=== PATIENT | female | born 1940 | race Caucasian/White ===

== ENCOUNTER → 2023-04-21 10:15 | Outpatient (BNV) | payer MEDICARE, SELFPAY | PROVIDERS: PCP Internal Medicine; Visit Provider Radiology Diagnostic Radiology | DX: Z12.31 Encounter for screening mammogram for malignant neoplasm of breast (principal) | CPT/HCPCS: 77063; 77067 ==

== ENCOUNTER 2023-04-21 10:30 | Outpatient (REF) | payer MEDICARE, SELFPAY ==
--- NOTE | ~2023-04-21 | MM_ITS ---
EXAMINATION: MM SCREENING DIGITAL BREAST TOMOSYNTHESIS, BILATERAL CLINICAL INFORMATION: Screening. Asymptomatic. COMPARISON: Mammography: This study is compared with prior exams dating back to 2009. TECHNIQUE: Digital breast tomosynthesis is performed in both the craniocaudal and mediolateral oblique views along with computer-aided detection (CAD). Synthesized 2D images are generated from the tomosynthesis. FINDINGS: There are scattered areas of fibroglandular density (ACR BI-RADS breast composition Category b). There are no significant masses, abnormal calcifications, or other abnormalities. MM/MM tomosynthesis screening BI IMPRESSION: No mammographic evidence of malignancy. ASSESSMENT: BI-RADS BI-RADS 1 - Negative RECOMMENDATION: Routine annual mammography screening. 1 year F/U This examination should not preclude the clinical evaluation of a suspicious palpable abnormality. This patient's information was entered into a reminder system with a target due date for their next mammogram.
== END 2023-04-21 10:31 | disposition home or self-care (01) ==
LOC: HO.MAMMO 10:30
PROVIDERS: PCP Internal Medicine; Visit Provider Internal Medicine
DX: Z12.31 Encounter for screening mammogram for malignant neoplasm of breast (principal)
CPT/HCPCS: 77063; 77067

== ENCOUNTER 2023-05-25 14:31 | Outpatient (REF) | payer MEDICARE, SELFPAY ==
--- NOTE | ~2023-05-25 | XR_ITS ---
EXAMINATION: XR HIP, RIGHT CLINICAL INFORMATION: Right hip pain with question DJD COMPARISON: None available. TECHNIQUE: Three views of the right hip. FINDINGS: Mild degenerative changes are seen in the right hip joint with some mild sclerosis and osteophyte formation. No fractures or bony destructive lesions. XR/XR hip RT min 2V IMPRESSION: Mild degenerative changes right hip.
== END 2023-05-25 14:32 | disposition home or self-care (01) ==
LOC: HO.HMGCX 14:31
PROVIDERS: PCP Internal Medicine; Visit Provider Internal Medicine
DX: M25.551 Pain in right hip (principal)
CPT/HCPCS: 73502

== ENCOUNTER 2023-11-21 09:06 | Outpatient (REF) | payer MEDICARE, SELFPAY ==
--- NOTE | ~2023-11-21 | XR_ITS ---
EXAMINATION: XR CHEST CLINICAL INFORMATION: Pneumonia. Cough. COMPARISON: None available. TECHNIQUE: 2 views of the chest were obtained. FINDINGS: The cardiac silhouette does not appear enlarged. There is an esophageal hernia. Hilar and mediastinal contours are otherwise unremarkable. The lungs are clear. No evidence of pneumonia. No pleural effusion or pneumothorax. Spinal stimulator in the mid and lower thoracic spinal canal. XR/XR chest 2V IMPRESSION: No evidence of pneumonia. Esophageal hernia.
== END 2023-11-21 09:07 | disposition home or self-care (01) ==
LOC: HO.HMGCX 09:06
PROVIDERS: PCP Internal Medicine; Visit Provider Internal Medicine
DX: J18.9 Pneumonia, unspecified organism (principal); R05.9 Cough, unspecified
CPT/HCPCS: 71046

== ENCOUNTER 2024-03-24 12:53 | Outpatient (REF) | payer MEDICARE, SELFPAY ==
--- NOTE | ~2024-03-24 | XR_ITS ---
EXAMINATION: XR HIP, RIGHT CLINICAL INFORMATION: Right hip pain, arthritis, hand fracture. COMPARISON: 05/25/2023 right hip. TECHNIQUE: Two views of the right hip. 3 views of the right hand. 3 views of the left hand. FINDINGS: Right hip: Diffuse demineralization. Degenerative changes in the lower spine. Moderate degenerative changes in the right hip with joint space narrowing and hypertrophic change. Alignment maintained. Right hand: Diffuse demineralization. Narrowing of the radiocarpal space. Chondrocalcinosis in the region distal to the ulna. Moderate degenerative changes in the first carpometacarpal joint with joint space narrowing and hypertrophic change. Degenerative changes involving multiple carpometacarpal, metacarpophalangeal and interphalangeal joints most notable in the first IP, second DIP, third DIP, and third IP joints. Multiple subluxations most notable at the second, third and fourth metacarpophalangeal, third proximal interphalangeal, and second, third and fourth DIP joints. Left hand: Diffuse demineralization. Narrowing of the radiocarpal space. Chondrocalcinosis in the region distal to the ulna. Ossicle distal to the ulna may represent prior trauma, avulsion of the styloid. Cystic lucency at the base of the lunate. Advanced degenerative changes in the first carpometacarpal joint with joint space narrowing and hypertrophic change. Degenerative changes involving multiple carpometacarpal, metacarpophalangeal and interphalangeal joints most notable in the first IP, second DIP, third DIP, and third IP joints. Multiple subluxations most notable at the second, third and fourth metacarpophalangeal, and third distal interphalangeal joint. XR/XR hand RT min 3V IMPRESSION: 1. Moderate degenerative changes in the right hip. 2. Severe degenerative changes bilateral hands. 3. Diffuse demineralization. 4. Correlation with clinical exam recommended to determine further management including possible additional imaging. If there is concern for fracture or other underlying pathology. This study was presented today April 20, 2024 for interpretation. Stat results provided at this time as requested by referring provider. Electronically signed by: Marija Arredondo MD 04/20/2024 12:54 PM EDT
--- NOTE | ~2024-03-24 | XR_ITS ---
EXAMINATION: XR HIP, RIGHT CLINICAL INFORMATION: Right hip pain, arthritis, hand fracture. COMPARISON: 05/25/2023 right hip. TECHNIQUE: Two views of the right hip. 3 views of the right hand. 3 views of the left hand. FINDINGS: Right hip: Diffuse demineralization. Degenerative changes in the lower spine. Moderate degenerative changes in the right hip with joint space narrowing and hypertrophic change. Alignment maintained. Right hand: Diffuse demineralization. Narrowing of the radiocarpal space. Chondrocalcinosis in the region distal to the ulna. Moderate degenerative changes in the first carpometacarpal joint with joint space narrowing and hypertrophic change. Degenerative changes involving multiple carpometacarpal, metacarpophalangeal and interphalangeal joints most notable in the first IP, second DIP, third DIP, and third IP joints. Multiple subluxations most notable at the second, third and fourth metacarpophalangeal, third proximal interphalangeal, and second, third and fourth DIP joints. Left hand: Diffuse demineralization. Narrowing of the radiocarpal space. Chondrocalcinosis in the region distal to the ulna. Ossicle distal to the ulna may represent prior trauma, avulsion of the styloid. Cystic lucency at the base of the lunate. Advanced degenerative changes in the first carpometacarpal joint with joint space narrowing and hypertrophic change. Degenerative changes involving multiple carpometacarpal, metacarpophalangeal and interphalangeal joints most notable in the first IP, second DIP, third DIP, and third IP joints. Multiple subluxations most notable at the second, third and fourth metacarpophalangeal, and third distal interphalangeal joint. XR/XR hand LT min 3V IMPRESSION: 1. Moderate degenerative changes in the right hip. 2. Severe degenerative changes bilateral hands. 3. Diffuse demineralization. 4. Correlation with clinical exam recommended to determine further management including possible additional imaging. If there is concern for fracture or other underlying pathology. This study was presented today April 20, 2024 for interpretation. Stat results provided at this time as requested by referring provider. Electronically signed by: Marija Arredondo MD 04/20/2024 02:28 PM EDT
--- NOTE | ~2024-03-24 | XR_ITS ---
EXAMINATION: XR HIP, RIGHT CLINICAL INFORMATION: Right hip pain, arthritis, hand fracture. COMPARISON: 05/25/2023 right hip. TECHNIQUE: Two views of the right hip. 3 views of the right hand. 3 views of the left hand. FINDINGS: Right hip: Diffuse demineralization. Degenerative changes in the lower spine. Moderate degenerative changes in the right hip with joint space narrowing and hypertrophic change. Alignment maintained. Right hand: Diffuse demineralization. Narrowing of the radiocarpal space. Chondrocalcinosis in the region distal to the ulna. Moderate degenerative changes in the first carpometacarpal joint with joint space narrowing and hypertrophic change. Degenerative changes involving multiple carpometacarpal, metacarpophalangeal and interphalangeal joints most notable in the first IP, second DIP, third DIP, and third IP joints. Multiple subluxations most notable at the second, third and fourth metacarpophalangeal, third proximal interphalangeal, and second, third and fourth DIP joints. Left hand: Diffuse demineralization. Narrowing of the radiocarpal space. Chondrocalcinosis in the region distal to the ulna. Ossicle distal to the ulna may represent prior trauma, avulsion of the styloid. Cystic lucency at the base of the lunate. Advanced degenerative changes in the first carpometacarpal joint with joint space narrowing and hypertrophic change. Degenerative changes involving multiple carpometacarpal, metacarpophalangeal and interphalangeal joints most notable in the first IP, second DIP, third DIP, and third IP joints. Multiple subluxations most notable at the second, third and fourth metacarpophalangeal, and third distal interphalangeal joint. XR/XR hip RT min 2V IMPRESSION: 1. Moderate degenerative changes in the right hip. 2. Severe degenerative changes bilateral hands. 3. Diffuse demineralization. 4. Correlation with clinical exam recommended to determine further management including possible additional imaging. If there is concern for fracture or other underlying pathology. This study was presented today April 20, 2024 for interpretation. Stat results provided at this time as requested by referring provider. Electronically signed by: Marija Arredondo MD 04/20/2024 12:54 PM EDT
== END 2024-03-24 12:54 | disposition home or self-care (01) ==
LOC: HO.HMGCX 12:53
PROVIDERS: PCP Internal Medicine; Visit Provider Internal Medicine Rheumatology
DX: M19.041 Primary osteoarthritis, right hand (principal); M19.042 Primary osteoarthritis, left hand; M16.11 Unilateral primary osteoarthritis, right hip
CPT/HCPCS: 73130; 73502

== ENCOUNTER 2024-07-13 13:17 | Outpatient (AMB) | payer MEDICARE, SELFPAY ==
--- NOTE | 2024-07-13 13:21 | A.OFFVIS_ITS ---
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: No Accompanied by: Self / Same As Patient Allergies No Known Allergies Allergy (Verified 07/13/24 13:25) Medication List - Last Reconciled 07/13/24 by Stephen Presley MD ascorbic acid (vitamin C) 1 g PO Q6H biotin mcg PO bupropion HCl XL (Wellbutrin XL) 300 mg PO QAM celecoxib (Celebrex) 200 mg PO BID cholecalciferol (vitamin D3) 50 mcg PO DAILY clobetasol 0.05% 1 appl topical DAILY diltiazem HCl ER 180 mg PO DAILY escitalopram oxalate (Lexapro) 10 mg PO DAILY furosemide 20 mg PO QAM gabapentin 600 mg PO TID lansoprazole 15 mg PO DAILY lorazepam (Ativan) 0.5 mg PO DAILY PRN mecobalamin (vitamin B12) 1,000 mcg PO DAILY zoledronic jnnj-qdqyasuq-nfexa 5 mg/100 mL (Reclast) ea IV zolpidem (Ambien) 10 mg PO BEDTIME HPI Comments Details: Giuliana is here for consultation regarding cardiac issues but we do not have enough information about her prior cardiac issues. It seems that she was seeing a straight cutter in [facility]. She believes it is for SVT. However not entirely clear what the arrhythmia was. It seems that she has been maintained on diltiazem with good effect and she has not had any major palpitations or other symptoms in quite some time. Few months back, she had apparently hypertension and her meds were switched from diltiazem to others like metoprolol, carvedilol and lisinopril but she apparently had a lot of side effects from these medications and stopped everything. Now she is back on the diltiazem but the blood pressure has also normalized. Otherwise, she states she feels quite well and does not have any active cardiac symptoms. No documented coronary disease or myocardial infarction. [facility] Medical History (Updated 07/13/24 @ 14:28 by Stephen Presley MD) Hypertension SVT (supraventricular tachycardia) Family History (Updated 07/13/24 @ 13:33 by Betzy Natarajan CMA) Mother Melanoma Maternal Grandmother HTN (hypertension) Father Lymphoma Brother DM2 (diabetes mellitus, type 2) Social History (Updated 07/13/24 @ 13:34 by Betzy Natarajan CMA) Alcohol intake: current Alcohol intake frequency: 0-2 drinks per day Alcohol type: wine Patient Tobacco Use Status: Former Tobacco user Review of Systems Const Denies chills, Denies daytime sleepiness, Denies fatigue, Denies fever(s), Denies poor appetite, Denies snoring, Denies stops breathing during sleep, Denies weakness, Denies weight gain and Denies weight loss Eyes Denies loss of vision ENT Denies dizziness and Denies hearing loss Card Denies chest pain, Denies irregular heart rhythm, Denies claudication, Denies leg edema, Denies lightheadedness, Denies palpitations, Denies dyspnea on exertion and Denies orthopnea Resp Denies cough, Denies excessive phlegm production, Denies dyspnea on exertion, Denies snoring and Denies wheezing GI Denies abdominal pain, Denies hematochezia, Denies change in bowel habits, Denies nausea and Denies vomiting Denies urinary frequency and Denies dysuria Musc Denies arthralgias, Denies muscle weakness, Denies numbness and Denies other Skin/Breast Denies nail changes and Denies rash Neuro Denies Abnormal speech present, Denies dizziness, Denies loss of vision, Denies memory loss, Denies numbness and Denies weakness Psych Denies depression and Denies memory loss Endo Denies fatigue and Denies palpitations Coleman/Lymph Denies easy bruising Aller/Immun Denies wheezing Physical Exam Vital Signs: Last Vital Signs Pulse 81 07/13/24 13:25 BP 120/82 07/13/24 13:25 BMI result Body Mass Index 25.1 Const General: comfortable and no acute distress Orientation/consciousness: patient oriented x3 HEENT Other: Unremarkable Head: Yes normal to inspection Neck Neck: Yes normal visual inspection Chest Chest palpation & inspection: normal inspection of the chest Resp Auscultation: clear to auscultation bilaterally Cardio Palpation: normal PMI Heart sounds: S1 normal heart sound present, S2 normal heart sound present, no gallops, no murmurs and no rubs GI Palpation (GI): Soft to palpation Back/Spine/Pelvis Other: unremarkable Skin General skin exam: no rashes or lesions noted Neuro General: patient oriented x3 Speech: No Abnormal speech present Extrem General: Yes normal to inspection Psych Mental Status: mental status grossly normal Office Procedures EKG Details: EKG with underlying sinus rhythm at 81/Min; sinus arrhythmia; incomplete right bundle-branch block; [place] [id number], Complete Assessment & Plan Assessment & Plan (1) SVT (supraventricular tachycardia): Code(s): I47.10 - Supraventricular tachycardia, unspecified Category: Medical Plan: Patient stated history of SVT but no strips to support the same. We will obtain prior records. She seems comfortable with diltiazem and continue. (2) Hypertension: Code(s): I10 - Essential (primary) hypertension Category: Medical Qualifiers: Hypertension type: primary hypertension Qualified Code(s): I10 - Essential (primary) hypertension Plan: Stable. No changes. Plan We will request old records. Coding Level of Care Code New Pt Level 3 (51131) Diagnoses SVT (supraventricular tachycardia) I47.10 Primary hypertension I10 Hypertension type: primary hypertension CPT Codes EKG - CPT: 36343-[id number], Complete ([id number])
[2024-07-13 13:25] VITALS: BP 120/82; PULSE 81; BMI 25.1
== END 2024-07-13 13:56 | disposition home or self-care (01) ==
PROVIDERS: PCP Internal Medicine; Visit Provider Internal Medicine
DX: I47.10 Supraventricular tachycardia, unspecified (principal); I10 Essential (primary) hypertension
CPT/HCPCS: 93010; 99203

== ENCOUNTER → 2024-07-13 13:17 | Outpatient (BNVA) | payer MEDICARE, SELFPAY | PROVIDERS: PCP Internal Medicine; Visit Provider Internal Medicine | DX: I45.10 Unspecified right bundle-branch block (principal); I47.10 Supraventricular tachycardia, unspecified; I10 Essential (primary) hypertension | CPT/HCPCS: 93005; 99202 ==

== ENCOUNTER 2024-09-01 11:07 | Outpatient (REF) | payer MEDICARE, SELFPAY ==
--- NOTE | ~2024-09-01 | XR_ITS ---
EXAMINATION: XR CHEST 2 VIEWS HISTORY: COUGH, R/O PNA COMPARISON: Comparison is made with the prior examination dated 11/21/2023. FINDINGS: PA and lateral views of the chest are submitted. The lungs are hyperinflated, consistent with COPD. The lungs are clear. There is no pleural effusion, pneumothorax, or pulmonary vascular congestion. The heart is normal in size. The aorta is tortuous. A spinal stimulator is again noted. XR/XR chest 2V IMPRESSION: COPD. No acute cardiopulmonary abnormality. Electronically signed by: Vinicius Espinosa MD 09/01/2024 03:02 PM GUY
== END 2024-09-01 11:08 | disposition home or self-care (01) ==
LOC: HO.HMGCX 11:07
PROVIDERS: PCP Internal Medicine; Visit Provider Internal Medicine
DX: J44.9 Chronic obstructive pulmonary disease, unspecified (principal); R05.9 Cough, unspecified
CPT/HCPCS: 71046

== ENCOUNTER → 2024-09-01 11:14 | Outpatient (BNV) | payer MEDICARE, SELFPAY | PROVIDERS: PCP Internal Medicine; Visit Provider Radiology Diagnostic Radiology | DX: R05.9 Cough, unspecified (principal) | CPT/HCPCS: 71046 ==

== ENCOUNTER 2024-11-09 15:01 | Outpatient (REF) | payer MEDICARE, SELFPAY ==
--- NOTE | ~2024-11-09 | CT_ITS ---
EXAMINATION: CT HEAD WITHOUT IV CONTRAST HISTORY: Dizziness and giddiness. TECHNIQUE: Unenhanced helical CT of the head was performed per standard departmental protocol. Coronal and sagittal reformats of the head were also evaluated. One or more of the following techniques was used for dose reduction: Automated exposure control, adjustment of the mA and/or kV according to patient size, use of iterative reconstruction technique. DLP: 716 mGy-cm COMPARISON: There are no prior studies for comparison. FINDINGS: BRAIN: There is diffuse prominence of the ventricular system and cortical sulci, consistent with atrophy. Periventricular and subcortical white matter hypodensities are noted which are nonspecific, but often seen in the setting of small vessel ischemic disease. There is no mass effect or midline shift. No intra- or extra-axial fluid collections are identified. SINUSES: The visualized paranasal sinuses are clear. The mastoid air cells and middle ear cavities are well pneumatized. ORBITS: The visualized orbits are unremarkable. BONES/SOFT TISSUES: The extracranial soft tissues are unremarkable. The calvarium is intact. No suspicious lytic or sclerotic lesions. CT/CT head/brain wo IV con IMPRESSION: No acute intracranial abnormality. Electronically signed by: Vinicius Espinosa MD 11/10/2024 08:52 AM EDT
--- OUTSIDE RECORDS SUMMARY | 2024-11-09 17:31 | XMS_ITS | Patient Health Record ---
Author Organization [facility] Address [address] [facility] [address] [facility] [place] [address] [place] [id number] Care Team Providers Care Tail Sawyer Name Role Phone [facility] Primary Care Provider Madhuri Joya Unavailable Unavailable Allergies Allergen (clinical drug ingredient) Drug/Non Drug Allergy documented on EMR Reaction Allergy Type Onset Date Status amoxicillin Amoxicillin Unknown Drug Allergy Act valdez Reason For Referral No Information Medications Medication SIG (Take, Route, Frequency, Duration) Notes Start Date End Date Status Vitamin C Active Reclast Active Vitamin B12 Active Fluocinonide Active ZyrTEC Active Vitamin D Active Gabapentin oral tablet Active dilTIAZem HCl Active LANZO lanzoprazole Active Ativan Active Ambien Active Biotin Active CeleBREX 100 MG 1 capsule with food Orally two in the AM and one in the PM for 90 day(s) Active Calcium & Magnesium Carbonates Active Lexapro Active ClobetaPlus Ointment Active Wellbutrin Active Problems Problem Type SNOMED Code ICD Code Onset Dates Problem Status W/U Status Risk Notes Problem Chronic pain syndrome (864016782) Chronic pain syndrome (G89.4) Active confirmed Plan Of Treatment Pending Test Test Name Order Date Physical therapy 11/11/2022 Physical Therapy : Evaluate and Treat Insurance Providers Payer Name Payer Address Payer Phone Subscriber Number Group Number Insured Name Patient Relationship to Insured Coverage Start Date Coverage End Date Medicare of [employer] [address] [place] [address] [id number] Giuliana Savage Self - patient is the insured [facility] Medicare Supplement [address] [place] [address] [id number] Giuliana Savage Self - patient is the insured Medical (General) History Medical History History ICD Code Back pain Osteoporosis lichen planopiralis SVT GERD Hearing loss Surgical History Surgery Date(Month/Year) Endoscopy Hysterectomy SCS implant - [facility] Hospitalization History Reason Date(Month/Year) with sx
--- OUTSIDE RECORDS SUMMARY | 2024-11-09 17:31 | XMS_ITS ---
Author Organization [facility] [place] Address [address] [place], [place] [id number] Care Team Providers Care Tank Charger Name Role Phone [facility] Primary Care Provider Madhuri Joya Unavailable Unavailable Fall, Jacobo Unavailable [phone] REASON FOR VISIT spinal stim Encounters Encounter Location Date Provider Diagnosis [facility] [address] [place], [place] [id number] 09/25/2023 Jacobo Malloy Plan Of Treatment No Information Progress Notes * Giuliana HALEYDOB:1940 (82 yo F)Acc No.[id number]:09/25/2023 Patient:?Janette Giuliana :1940???Age:82 Y???Sex:Female Address:[place] [address], [address] * true * Date:? Generated for Printi raúl/Sonido/eTransmitting on:?11/09/2024 05:31 PM EDT
== END 2024-11-09 15:02 | disposition home or self-care (01) ==
LOC: HO.CT 15:01
PROVIDERS: Visit Provider Internal Medicine
DX: R42 Dizziness and giddiness (principal)
CPT/HCPCS: 70450

== ENCOUNTER → 2024-11-09 15:31 | Outpatient (BNV) | payer MEDICARE, SELFPAY | PROVIDERS: Visit Provider Radiology Diagnostic Radiology | DX: R42 Dizziness and giddiness (principal) | CPT/HCPCS: 70450 ==

== ENCOUNTER 2025-01-19 10:01 | Outpatient (AMB) | payer MEDICARE, SELFPAY ==
[2025-01-19 10:08] VITALS: BP 124/68; PULSE 68; BMI 24.6
--- NOTE | 2025-01-19 10:08 | MHC.OFFVIS ---
Vital Signs 01/19/25 10:08 Height 5 ft Weight 126 lb BMI 24.6 BP 124/68 Blood Pressure Location Lt brachial Position Sitting Pulse 68 Pulse Source Pulse Oximeter Intake Visit Reasons: 6 mth f/up HS Allergies No Known Allergies Allergy (Verified 07/13/24 13:25) Medication List - Last Reconciled 01/19/25 by Sarita Cotton, TAKER AWAY-C ascorbic acid (vitamin C) 1 g PO Q6H biotin mcg PO bupropion HCl XL (Wellbutrin XL) 300 mg PO QAM celecoxib (Celebrex) 200 mg PO BID cholecalciferol (vitamin D3) 50 mcg PO DAILY clobetasol 0.05% 1 appl topical DAILY diltiazem HCl ER 180 mg PO DAILY escitalopram oxalate (Lexapro) 10 mg PO DAILY furosemide 20 mg PO QAM gabapentin 600 mg PO TID lansoprazole 15 mg PO DAILY lorazepam (Ativan) 0.5 mg PO DAILY PRN mecobalamin (vitamin B12) 1,000 mcg PO DAILY zoledronic zhnn-edjsrbka-ccoap 5 mg/100 mL (Reclast) ea IV zolpidem (Ambien) 10 mg PO BEDTIME HPI HPI 6 mth f/up HS: Details: Giuliana Reeves is an 84-year-old female presenting for follow-up of SVT and hypertension. She continues on Diltiazem, 180 mg daily, for rate control, without any recurrent heart palpitations. Last SVT episode over 20 years ago. She has a history of Essential Hypertension with varied BP readings, previously controlled poorly with beta-blockers causing adverse effects. Blood pressure stabilized on current med management, now at 124/68 mmHg. Shortness of breath noted in the last two to three months, mainly exertional. Mild leg swelling managed with support stockings. [facility] Medical History Hypertension SVT (supraventricular tachycardia) Family History Mother Melanoma Maternal Grandmother HTN (hypertension) Father Lymphoma Brother DM2 (diabetes mellitus, type 2) Social History Alcohol intake: current Alcohol intake frequency: 0-2 drinks per day Alcohol type: wine Patient Tobacco Use Status: Former Tobacco user Review of Systems Const All systems reviewed & are unremarkable except as noted in HPI and below Denies weakness ENT Denies dizziness Card Denies chest pain, Denies chest pain with activity, Denies syncope, Denies rapid heart rate, Denies pedal edema, Denies edema, Denies leg edema, Denies lightheadedness, Denies palpitations, Denies dyspnea, Reports dyspnea on exertion and Denies orthopnea Resp Denies cough, Denies dyspnea and Reports dyspnea on exertion GI Denies hematochezia and Denies change in stool character Musc Denies abnormal gait, Denies muscle cramps, Denies muscle weakness, Denies numbness, Denies radiating pain into limb and Denies tingling Neuro Denies abnormal gait, Denies dizziness, Denies syncope, Denies numbness, Denies tingling and Denies weakness Endo Denies palpitations Physical Exam Vital Signs: Last Vital Signs Pulse 68 01/19/25 10:08 BP 124/68 01/19/25 10:08 BMI result Body Mass Index 24.6 Const General: cooperative, healthy appearing, comfortable and no acute distress Orientation/consciousness: patient oriented x3 Neck Neck: Yes normal visual inspection and Yes no JVD Resp Effort & Inspection: normal respiratory effort Auscultation: clear to auscultation bilaterally, no rales, no rhonchi and no wheezes Cardio Jugular venous distension: no JVD Rate: regular rate Rhythm: regular rhythm Heart sounds: S1 normal heart sound present, S2 normal heart sound present, no gallops, no murmurs and no rubs Neuro General: patient oriented x3 Extrem General: Yes normal to inspection, No no pedal edema and No calf tenderness Psych Appearance: grossly normal Mental Status: mental status grossly normal Speech and movement: Normal speech and movement present Assessment & Plan Assessment & Plan (1) SVT (supraventricular tachycardia): Code(s): I47.10 - Supraventricular tachycardia, unspecified Category: Medical Plan: Remote history of SVT based on patient's recollection. She previously followed with Cardiology elsewhere, no notes obtained as of yet. Will reach out to [facility] for their records. Last echo 12/22/2023 showed EF 60-65%, grade 1 diastolic dysfunction and no significant valve abnormalities. Pulses regular on examination today. She denies any concerning heart palpitations. Will have her continue on diltiazem 180 mg daily for heart rate control. Reviewed the reduction in caffeinated beverages. Vagal maneuvers discussed. Emergency care if needed for sustained rapid heart palpitations. Cardiology follow-up 6 months, sooner if needed. (2) Hypertension: Code(s): I10 - Essential (primary) hypertension Category: Medical Qualifiers: Hypertension type: primary hypertension Qualified Code(s): I10 - Essential (primary) hypertension Plan: History of hypertension with ideal blood pressure goal less than 130/80. Well controlled at this time. Continue diltiazem and Lasix. Plan During today's visit, I have discussed with the patient the management of her Supraventricular Tachycardia, highlighting the effectiveness of the current medication regimen of diltiazem, and ways to address symptoms at home should rapid heartbeats occur. We reviewed the risks and benefits of maintaining current therapy, given her stable status and potential triggers like caffeine. She was informed about the expected physiological effects of maneuvers like the Valsalva technique during episode occurrences. For her Essential Hypertension, I reassured her about the efficacy of the existing treatment plan while recommending regular BP monitoring. We reviewed symptoms that may indicate fluid overload or worsening cardiovascular function such as increased shortness of breath for early detection and timely management. The need for consistent follow-up with a new primary physician due to her doctor's fpc was encouraged, and guidance on interim care was detailed to ensure continuous medical support. I advised scheduling the next cardiology follow-up in six months unless acute symptoms arise. Patient Instructions: - Continue taking diltiazem, 180 mg daily. - Consider the Valsalva maneuver or face immersion in cold water for self-management of rapid heartbeats. - Limit caffeine intake. - Monitor your blood pressure periodically. - Report increased shortness of breath or persistent rapid heart rates. - Keep your scheduled appointment with the new primary care physician. - Return for follow-up in six months unless acute symptoms develop. - Call the assigned clinic for any immediate health concerns. Patient was informed and verbally consented to the use of an ambient scribe for clinic note documentation during this visit. Visit time spent on chart review, interview, assessment, orders, documentation. Coding Level of Care Code Est Pt Level 3 (72659) Complex EM visit Add On G2211 Diagnoses SVT (supraventricular tachycardia) I47.10 Primary hypertension I10 Hypertension type: primary hypertension Time Spent (min) 24
--- OUTSIDE RECORDS SUMMARY | 2025-01-19 11:25 | XMS_ITS | Patient Health Record ---
Author Organization [facility] Address [address] [place] [id number] Care Team Providers Care Hair Dresser Name Role Phone [facility] Primary [...] Status Risk Notes Problem Chronic pain syndrome (796736991) Chronic pain syndrome (G89.4) Active confirmed Plan Of Treatment Pending Test Test Name Order Date Physical therapy 11/11/2022 Physical Therapy : Evaluate and Treat Insurance Providers Payer Name Payer Address Payer Phone Subscriber Number Group Number Insured Name Patient Relationship to Insured Coverage Start Date Coverage End Date Medicare of SAV [employer] [address] [place] [id number] [id number] Giuliana Savage Self - patient is the insured [facility] Medicare Supplement [address] [place] [address] [id number] Giuliana Savage Self - patient is the insured Medical (General) History Medical History History ICD Code Back pain Osteoporosis lichen planopiralis SVT GERD Hearing loss Surgical History Surgery Date(Month/Year) Endoscopy Hysterectomy SCS implant - [facility] Hospitalization History Reason Date(Month/Year) with sx
== END 2025-01-19 10:39 | disposition home or self-care (01) ==
LOC: HO.HCS 10:02
PROVIDERS: PCP Internal Medicine; Visit Provider Nurse Practitioner Family
DX: I47.10 Supraventricular tachycardia, unspecified (principal); I10 Essential (primary) hypertension
CPT/HCPCS: 99213; G2211

== ENCOUNTER → 2025-01-19 10:01 | Outpatient (BNVA) | payer MEDICARE, SELFPAY | PROVIDERS: PCP Internal Medicine; Visit Provider Nurse Practitioner Family | DX: I47.10 Supraventricular tachycardia, unspecified (principal); I10 Essential (primary) hypertension | CPT/HCPCS: 99212 ==

== ENCOUNTER 2025-07-27 10:01 | Outpatient (AMB) | payer MEDICARE, SELFPAY ==
[2025-07-27 10:06] VITALS: BP 130/72; PULSE 79; BMI 25.0
--- NOTE | 2025-07-27 10:06 | A.OFFVIS_ITS ---
Vital Signs 07/27/25 10:06 Height 5 ft Weight 127 lb 13.89 oz BMI 25.0 BP 130/72 Blood Pressure Location Lt brachial Position Sitting Pulse 79 Pulse Source Monitor Intake Visit Reasons: 6m follow up Purchasing Manager/Sales Required: No Allergies No Known Allergies Allergy (Verified 07/27/25 10:09) Medication List - Last Reconciled 07/27/25 by Sarita Cotton NP-[facility] ascorbic acid (vitamin C) 1 g PO Q6H biotin mcg PO bupropion HCl XL (Wellbutrin XL) 300 mg PO QAM celecoxib (Celebrex) 200 mg PO BID cholecalciferol (vitamin D3) 50 mcg PO DAILY clobetasol 0.05% 1 appl topical DAILY diltiazem HCl ER 180 mg PO DAILY escitalopram oxalate (Lexapro) 10 mg PO DAILY furosemide 20 mg PO QAM gabapentin 600 mg PO ONCE lansoprazole 15 mg PO DAILY lorazepam (Ativan) 0.5 mg PO DAILY PRN mecobalamin (vitamin B12) 1,000 mcg PO DAILY zoledronic yruo-jdbkefan-cbdkd 5 mg/100 mL (Reclast) ea IV zolpidem (Ambien) 10 mg PO BEDTIME HPI HPI 6m follow up: Details: The patient is an 84 year old female presenting for followup of SVT and hypertension. Her last known episode of SVT was over 20 years ago, and she has been maintained on diltiazem for rate control since. Her blood pressure has been generally controlled, though she notes occasional elevations at doctor's offices and at home, with the highest systolic reading around 140 mmHg and lowest around 119 mmHg; she denies any symptoms associated with these elevations. The patient has a history of asymptomatic premature atrial contractions, which have been present for a long time. Past medical history is notable for chronic back pain managed with a spinal stimulator, Raynaud's phenomenon, and prior smoking. She recently experienced worsening numbness in her hands and feet, whichlead to a vasculare specialist evaluation, who could feel her ankle pulses, concluded she was fine and that the symptoms were likely neuropathic. 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 [facility] Medical History Hypertension SVT (supraventricular tachycardia) Family History Mother Melanoma Maternal Grandmother HTN (hypertension) Father Lymphoma Brother DM2 (diabetes mellitus, type 2) Social History Alcohol intake: current Alcohol intake frequency: 0-2 drinks per day Alcohol type: wine Patient Tobacco Use Status: Former Tobacco user Review of Systems Const All systems reviewed & are unremarkable except as noted in HPI and below ENT Denies dizziness Card Denies chest pain, Denies chest pain at rest, Denies chest pain with activity, Denies rapid heart rate, Denies pedal edema, Denies edema, Denies leg edema, Denies lightheadedness, Denies palpitations, Denies dyspnea, Denies dyspnea on exertion and Denies orthopnea Resp Denies cough, Denies dyspnea and Denies dyspnea on exertion GI Denies hematochezia and Denies change in stool character Musc Details: chronic back pain - neuropathy Denies abnormal gait, Denies limited range of motion, Denies muscle cramps, Denies muscle weakness, Denies numbness, Denies radiating pain into limb, Denies stiffness and Denies tingling Neuro Denies abnormal gait, Denies dizziness, Denies numbness and Denies tingling Endo Denies palpitations Physical Exam Vital Signs: Last Vital Signs Pulse 79 07/27/25 10:06 BP 130/72 07/27/25 10:06 BMI result Body Mass Index 25.0 Const General: cooperative, healthy appearing, comfortable and no acute distress Orientation/consciousness: patient oriented x3 Neck Neck: Yes normal visual inspection and Yes no JVD Resp Effort & Inspection: normal respiratory effort Auscultation: clear to auscultation bilaterally, no rales, no rhonchi and no wheezes Cardio Jugular venous distension: no JVD Rate: regular rate Rhythm: regular rhythm Heart sounds: S1 normal heart sound present, S2 normal heart sound present, no gallops, no murmurs and no rubs Neuro General: patient oriented x3 Extrem General: Yes normal to inspection, No no pedal edema and No calf tenderness Psych Appearance: grossly normal Mental Status: mental status grossly normal Speech and movement: Normal speech and movement present Office Procedures EKG Details: Today, read by me, sinus rhythm with PACs, incomplete right bundle branch block, rate 70, QTC 414 milliseconds 32050-[id number], Complete Assessment & Plan Assessment & Plan (1) SVT (supraventricular tachycardia): Code(s): I47.10 - Supraventricular tachycardia, unspecified Category: Medical Plan: Remote history of SVT based on patient's recollection. -with last known episode over 20 years ago. Last echo 12/22/2023 showed EF 60-65%, grade 1 diastolic dysfunction and no significant valve abnormalities. EKG today showing sinus rhythm with PACs, rate 79. Continue diltiazem 180 mg daily for heart rate control. Reviewed the reduction in caffeinated beverages and Vagal maneuvers. Emergency care if needed for sustained rapid heart palpitations. Cardiology follow-up 6 months, sooner if needed. (2) Hypertension: Code(s): I10 - Essential (primary) hypertension Category: Medical Qualifiers: Hypertension type: primary hypertension Qualified Code(s): I10 - Essential (primary) hypertension Plan: History of hypertension with ideal blood pressure goal less than 130/80. Well controlled at this time. Continue diltiazem and Lasix. Plan I reviewed with the patient her stable cardiac status, noting that her history of SVT remains quiescent and her blood pressure is well-managed on her current regimen of diltiazem and furosemide. We discussed the EKG finding of premature beats, and I explained that since she is asymptomatic, no intervention is necessary. I addressed her concern regarding numbness in her extremities and a prior inconclusive vascular test. I explained that the heart pushes blood to create a pulse, and, a vascular specialist's exam confirming good pulses in her ankles is reassuring that there is no major blockage. We also distinguished this from her Raynaud's phenomenon, which is a vasospasm of smaller vessels. I elaborated that a sudden blockage or embolism would likely cause acute pain and discoloration, which she does not have, and that her numbness is more likely a chronic neuropathic issue. I advised that we will make no changes to her medications. I recommended she follow up in six months, or to call us sooner if she develops any new or concerning heart-related symptoms. Patient Instructions: - Continue taking your current medications, diltiazem and furosemide (water pill), as prescribed for your heart rate and blood pressure. - Your blood pressure is in a good range, so we will not make any changes today. - The numbness in your hands and feet is not a problem with blood flow from your heart - Please schedule a follow-up appointment in cardiology for six months from now. - Call our office sooner if you experience any new heart-related symptoms, such as chest pain, shortness of breath, or a feeling of a very fast heartbeat. Patient was informed and verbally consented to the use of an ambient scribe for clinic note documentation during this visit. Visit time spent on chart review, interview, assessment, orders, documentation. Coding Level of Care Code Est Pt Level 3 (87009) Add On Problem Visit Only Diagnoses SVT (supraventricular tachycardia) I47.10 Primary hypertension I10 Hypertension type: primary hypertension CPT Codes EKG - CPT: 31239-[id number], Complete ([id number]) Time Spent (min) 24
--- OUTSIDE RECORDS SUMMARY | 2025-07-27 12:19 | XMS_ITS | Clinical Summary ---
Author Organization [facility] Address [address] [place] [address] Phone Care Team Providers Care Director Of Adult Epilepsy Name Role Phone Rajeev Tapia MD Primary Care Provider [phone] Allergies Active Allergy Reactions Criticality Noted Date Comments Amoxicillin 11/08/2015 Bee Pollen Other (See Comments) 09/26/2011 Medications ascorbic acid, vitamin C, (VITAMIN C) 1000 MG tablet Take 1,000 mg by mouth daily. Active biotin 5,000 mcg ODT Take by mouth. Activ e buPROPion (WELLBUTRIN XL) 300 MG ER 24 hr tablet Take 300 mg by mouth every morning. 4 Active cetirizine (ZYRTEC) 10 MG tablet Take by mouth daily. Active cholecalciferol (VITAMIN D3) 2,000 unit capsule Take by mouth. Activ e cyanocobalamin, vitamin B-12, 1000 MCG tablet Take 1,000 mcg by mouth daily. Active zoledronic acid (RECLAST) 5 mg/100 mL PgBk Inject 5 mg into the vein. Active zolpidem (AMBIEN) 10 mg tablet take 1 tablet by mouth everyday at bedtime 4 Active sulfamethoxazol e-trimethoprim (BACTRIM DS) 800-160 mg per tablet 4 Active gabapentin (NEURONTIN) 300 MG capsule 4 Active escitalopram oxalate (LEXAPRO) 10 MG tablet Take 1 tablet by mouth every morning. 4 Active celecoxib (CELEBREX) 200 MG capsule Take 200 mg by mouth 2 (two) times a day. 4 Active LORazepam (ATIVAN) 0.5 MG tablet TAKE 1 TABLET (0.5 MG) BY ORAL ROUTE 3 TIMES PER DAY NEEDED 4 Active fluocinonide 0.05 % cream Apply topically 2 (two) times a day. Active clobetasol (CLOBEX) 0.05 % lotion Apply topically 2 (two) times a day. Active lansoprazole (PREVACID) 15 MG capsule Take 15 mg by mouth daily. Active carvedilol (COREG) 12.5 MG tabletIndicatio ns:Benign essential hypertension,Pa lpitations Take 1 tablet (12.5 mg total) by mouth 2 (two) times a day with meals. 60 tablet 3 4 Active Active Problems Problem Noted Date Diagnosed Date Benign essential hypertension 11/24/2023 Assessment & Plan (02/17/2024 10:24 AM EDT): Her blood pressure needs a little bit more attention I am going to stop Lasix and diltiazem as diltiazem can cause lower extremity edema I suggested her to wear compression stockings like you have and we will start metoprolol long-acting 50 mg once a day. Assessment & Plan (11/24/2023 8:43 AM EDT): Well-controlled to the guidelines on a usual basis she has 1 reading here in the office that is elevated. Arrhythmia 11/24/2023 Assessment & Plan (02/17/2024 10:24 AM EDT): She has about 6% PACs on her tracing but not that symptomatic in my experience beta-blockers are more effective at suppressing them then calcium channel blockers. Assessment & Plan (11/24/2023 8:44 AM EDT): She has not been symptomatic recently Palpitations 11/24/2023 Assessment & Plan (02/17/2024 10:25 AM EDT): She is not that symptomatic from them at this time Assessment & Plan (11/24/2023 8:44 AM EDT): She has documented supraventricular tachycardia I have ordered her an echo and a 7-day MCOT monitor I will follow-up with her thereafter Social History Tobacco Use Types Packs/Day Years Used Date Smoking Tobacco: Never Assessed Education Answer Date Recorded Are you interested in more education? Not on braeden e 08/31/2023 Are you concerned about learning? Not on file 08/31/2023 No 08/31/2023 No 08/31/2023 Digital Access Answer Date Recorded No 08/31/2023 No 08/31/2023 Reliable internet access at home? Not on file 08/31/2023 Device with a working camera? Not on file Comments Unknown Sex and Gender Information Value Date Recorded Sex Assigned at Not on file Legal Sex Female 8:55 AM EST Gender Identity Not on file Sexual Orientation Not on file Last Filed Vital Signs Vital Sign Reading Time Taken Comments Blood Pressure 138/82 02/17/2024 10:09 AM EDT Pulse 68 02/17/2024 10:09 AM EDT Temperature - - Respiratory Rate - - Oxygen Saturation 99% 02/17/2024 10:09 AM EDT Inhaled Oxygen Concentration - - Weight 57.2 kg (126 lb) 02/17/2024 10:09 AM EDT Height 152 cm (4' 11.84 ) 02/17/2024 10:09 AM ED T Body Mass Index 24.74 02/17/2024 10:09 AM EDT Plan of Treatment Health Maintenance Due Date Last Done Comments Adult Td,Tdap Booster 1938 DEPRESSION SCREENING 1950 PNEUMOCOCCAL VACCINES (50+ years) (1 of 1 - PCV) 1988 ZOSTER VACCINES (1 of 2) 1988 RSV VACCINE (1 - 1-dose 75+ series) 2013 INFLUENZA VACCINE (#1) 2025 COVID-19 VACCINE (1 - 2024-2 6 season) 2025 OSTEOPOROSIS SCREENING INITI AL (ONE-TIME) Completed 03/03/2022, 02/27/2020 HEPATITIS A VACCINES Aged Out No long er eligible based on patient's age to complete this topic HIB VACCINES Aged Out No longer eligi ble based on patient's age to complete this topic MENINGOCOCCAL VACCINES (ACWY) Aged Out No longer eligible based on patient's age to complete this topic MENINGOCOCCAL VACCINES (B) Aged Out N o longer eligible based on patient's age to complete this topic Medical Devices Not on file Insurance MEDICARE PART A & B [facility] MEDICARE SUPPLEMENT MEDICARE PART A & B [facility] MEDICARE SUPPLEMENT MEDICARE PART A & B [facility] [place] [id number] MEDICARE PART A & B [id number] [place] [address] MEDICARE SUPPLEMENT MEDICARE PART A & B [facility] MEDICARE SUPPLEMENT MEDICARE PART A & B [facility] MEDICARE SUPPLEMENT Care Teams Director Of Adult Epilepsy Relationship Specialty Start Date End Date Rajeev Tapia MD [address] [place] [id number] PCP - General Internal Medicine 08/31/23 Additional Source Comments The information contained in this document represents components of the legal health record. It is not the complete legal health record.[facility]
--- OUTSIDE RECORDS SUMMARY | 2025-07-27 12:19 | XMS_ITS | Encounter Summary ---
Author Organization [facility] Address [address] [place] [address] Phone Care Team Providers Care Clinical Quality Analyst Name Role Phone Rajeev Tapia MD Primary Care Provider [phone]- [phone] Encounter Details Date Type Department Care Team ([facility] Contact Info) Description 11/24/2023 Procedure Pass [facility] [address] [place] [address] Social History Tobacco Use Types Packs/Day Years [...] on file Sexual Orientation Not on file documented as of this encounter Plan of Treatment Not on file documented as of this encounter Visit Diagnoses Not on filedocumented in this encounter Care Teams Clinical Quality Analyst Relationship Specialty Start Date End Date Rajeev Tapia MD [address] [place] [id number] PCP - General Internal Medicine 08/31/23 documented as of this encounter Additional Source Comments The information contained in this document represents components of the legal health record. It is not the complete legal health record.[facility]
--- OUTSIDE RECORDS SUMMARY | 2025-07-27 12:19 | XMS_ITS | Patient Health Record ---
Author Organization [facility] Address [address] [place] [address] Care Team Providers Care [place] District Aide Name Role Phone Tiera Fairchild, Assgiuliano Primary Care Provider Madhuri Joya Unavailable Unavailable [...] in the AM and one in the PM; Duration: 90 day(s) Active Calcium & Magnesium Carbonates Active Lexapro Active ClobetaPlus Ointment Active Wellbutrin Active Problems Problem Type SNOMED Code ICD Code Onset Dates Problem Status W/U Status Risk Notes Problem Chronic pain syndrome ([id number]) Chronic pain syndrome (G89.4) Active confirmed Plan Of Treatment Pending Test Test Name Order Date Physical therapy 11/11/2022 Physical Therapy : Evaluate and Treat Insurance Providers Payer Name Payer Address Payer Phone Subscriber Number Group Number Insured Name Patient Relationship to Insured Coverage Start Date Coverage End Date Medicare of S[employer] [place] [address] [place] [phone] [id number] Giuliana Savage Self - patient is the insured [facility] Medicare Supplement [address] [place] [address] [id number] Giuliana Savage Self - patient is the insured Medical (General) History Medical History History ICD Code Back pain Osteoporosis lichen planopiralis SVT GERD Hearing loss Surgical History Surgery Date(Month/Year) Endoscopy Hysterectomy SCS implant - [facility] Hospitalization History Reason Date(Month/Year) with sx
== END 2025-07-27 10:34 | disposition home or self-care (01) ==
LOC: HO.HCS 10:01
PROVIDERS: PCP Internal Medicine; Visit Provider Nurse Practitioner Family
DX: I47.10 Supraventricular tachycardia, unspecified (principal); I10 Essential (primary) hypertension
CPT/HCPCS: 93010; 99213; G2211

== ENCOUNTER → 2025-07-27 10:01 | Outpatient (BNVA) | payer MEDICARE, SELFPAY | PROVIDERS: PCP Internal Medicine; Visit Provider Nurse Practitioner Family | DX: I10 Essential (primary) hypertension (principal); I47.10 Supraventricular tachycardia, unspecified; R20.0 Anesthesia of skin | CPT/HCPCS: 93005; 99212 ==